=== PATIENT | male | born 1935 | race Caucasian/White ===

== ENCOUNTER → 2016-12-05 | Outpatient (CLI) | payer MEDICARE, OTHER ==
[~2016-12-05] MED LIST: ALLO100T30 PO; ALLO300T PO; ASPI-621 PO; ATOR20TA9 PO; ATOR80TA75 PO; CARV-39 PO; CARV12.543 PO; CARV3.122 PO; CARV6.2512 PO; ENAL10TA PO; ENAL20TA PO; FAMO20TA7 PO; FURO40TA6 PO; MULT-208 PO; TICA90TA PO; [UNRECOGNIZED DRUG - REMARK]
== END | disposition home or self-care (01) ==
LOC: CFH 09:15
PROVIDERS: ATTEND Internal Medicine Cardiovascular Disease
DX: I35.0 Nonrheumatic aortic (valve) stenosis (principal); I34.0 Nonrheumatic mitral (valve) insufficiency; I51.7 Cardiomegaly; I25.10 Atherosclerotic heart disease of native coronary artery without angina pectoris; I25.2 Old myocardial infarction
CPT/HCPCS: 93306

== ENCOUNTER → 2017-02-27 | Outpatient (CLI) | payer MEDICARE, OTHER ==
[~2017-02-27] MED LIST changes: +ATOR-2 PO; -ATOR80TA75 PO; +CHOL200024 PO; +CLOP75TA PO; +MULT-516 PO
[2017-02-27 12:05] LABS: HEMATOCRIT 35.3 % (39.2-51.8); HEMOGLOBIN 11.7 g/dL (13.7-18.0); WHITE BLOOD COUNT 8.5 x10^3/uL (3.4-10)
[2017-02-27 12:51] LABS: ASPARTATE AMINO TRANSFERASE 23 U/L (15-37); BLOOD UREA NITROGEN 24 mg/dL (7-18)
== END | disposition home or self-care (01) ==
LOC: STAR 11:01
PROVIDERS: ATTEND Surgery
DX: Z01.818 Encounter for other preprocedural examination (principal); Z49.01 Encounter for fitting and adjustment of extracorporeal dialysis catheter; R94.31 Abnormal electrocardiogram [ECG] [EKG]; I12.0 Hypertensive chronic kidney disease with stage 5 chronic kidney disease or end stage renal disease; N18.5 Chronic kidney disease, stage 5; E78.5 Hyperlipidemia, unspecified; I25.83 Coronary atherosclerosis due to lipid rich plaque; M10.9 Gout, unspecified; J44.9 Chronic obstructive pulmonary disease, unspecified; Z99.81 Dependence on supplemental oxygen
CPT/HCPCS: 36415; 80053; 85025; 85610; 85730; 93005

== ENCOUNTER 2017-03-04 10:54 | Observation (INO) | payer MEDICARE, OTHER ==
[2017-02-27 11:35] VITALS: BP 149/68
[~2017-03-04] VITALS: Ht 185.4 cm; Wt 73.8 kg
[2017-03-04] MEDS ORDERED: SODIUM CHLORIDE 0.9% 1,000 ML IV SCH (11:19)
[2017-03-04 11:22] VITALS: BP 149/68
[2017-03-04] MEDS ORDERED: BUPIVACAINE/PF 0.5% ONE (12:33)
[2017-03-04] MEDS ORDERED: SODIUM BICARBONATE 4.2%, 5ML ONE (12:34)
[2017-03-04] MEDS ORDERED: EPINEPHRINE 1 MG/ML, 1ML ONE (12:35)
[2017-03-04] MEDS ORDERED: THROMBIN 20,000 UNIT VIAL TP ONE (12:35)
[2017-03-04] MEDS ORDERED: LIDOCAINE-MPF 2% ,5ML ONE (12:35)
[2017-03-04] MEDS ORDERED: HEPARIN 1,000 UNITS/ML, 10ML ONE (12:53)
[2017-03-04] MEDS ORDERED: OXYcodone 5 MG/5 ML ORAL.SOL UDC PO PRN (13:30)
[2017-03-04] MEDS ORDERED: HYDROcodone/APAP 7.5-325MG/15ML UDC PO PRN (13:30)
[2017-03-04] MEDS ORDERED: ACETAMINOPHEN 325 MG TABLET PO PRN (13:30)
[2017-03-04] MEDS ORDERED: ONDANSETRON 2MG/ML, 2ML IVPush PRN (13:30)
[2017-03-04] MEDS ORDERED: FENTANYL PF 100 MCG/2ML IV PRN (13:30)
[2017-03-04] MEDS ORDERED: HYDROmorphone 1 MG/ML, 1ML IV PRN (13:30)
[2017-03-04] MEDS ORDERED: ONDANSETRON 2MG/ML, 2ML ONE (13:48)
[2017-03-04] MEDS ORDERED: PROPOFOL 10 MG/ML, 20ML ONE (13:48)
[2017-03-04] MEDS ORDERED: SUCCINYLCHOLINE 20 MG/ML, 10ML ONE (13:48)
[2017-03-04] MEDS ORDERED: CEFAZOLIN 1,000 MG ONE (13:48)
[2017-03-04] MEDS ORDERED: DEXAMETHASONE 4 MG/ML, 1ML ONE (13:48)
[2017-03-04] MEDS ORDERED: PHENYLEPHRINE 10 MG/ML ONE (13:48)
[2017-03-04] MEDS ORDERED: FENTANYL PF 100 MCG/2ML ONE (13:48)
[2017-03-04] MEDS ORDERED: HYDROcodone/APAP 5/325 TABLET PO PRN (15:00)
[2017-03-04] MEDS ORDERED: SODIUM CHLORIDE FLUSH 10ML SYR IVF SCH (21:00)
== END 2017-03-04 16:50 | disposition home or self-care (01) ==
LOC: OUT 10:54 → ORIP 14:55
PROVIDERS: ADMIT Surgery; ATTEND Surgery
DX: N18.5 Chronic kidney disease, stage 5 (principal)
CPT/HCPCS: 36821; G0378; J0171; J0330; J0690; J1100; J1644; J2370; J2405; J2704; J3010; J3490; J7030

== ENCOUNTER → 2017-04-17 | Outpatient (CLI) | payer MEDICARE, OTHER ==
[~2017-04-17] MED LIST changes: +CARV6.252 PO
[2017-04-17 14:24] LABS: HEMOGLOBIN 12.5 g/dL (13.7-18.0); WHITE BLOOD COUNT 8.5 x10^3/uL (3.4-10)
[2017-04-17 14:33] LABS: BLOOD UREA NITROGEN 38 mg/dL (7-18)
== END | disposition home or self-care (01) ==
LOC: STAR 13:07
PROVIDERS: ATTEND Surgery
DX: Z01.812 Encounter for preprocedural laboratory examination (principal)
CPT/HCPCS: 36415; 80048; 85025

== ENCOUNTER 2017-04-22 12:56 | Day surgery (SDC) | payer MEDICARE, OTHER ==
[~2017-04-22] VITALS: Ht 182.9 cm; Wt 73.0 kg
[2017-04-22 13:41] VITALS: BP 131/80
[2017-04-22 13:52] LABS: BLOOD UREA NITROGEN 45 mg/dL (7-18)
[2017-04-22] MEDS ORDERED: D5%-0.45% NACL 1,000 ML IV SCH (14:00)
[2017-04-22] MEDS ORDERED: LIDOCAINE 2%, 20ML ONE (14:12)
[2017-04-22] MEDS ORDERED: HEPARIN 1,000 UNITS/ML, 10ML ONE (14:27)
[2017-04-22] MEDS ORDERED: FLUMAZENIL 0.1 MG/1 ML, 5ML ONE (14:27)
[2017-04-22] MEDS ORDERED: FENTANYL PF 100 MCG/2ML ONE (14:27)
[2017-04-22] MEDS ORDERED: MIDAZOLAM 1 MG/ML, 5ML ONE (14:27)
[2017-04-22] MEDS ORDERED: NALOXONE 1 MG/ML, 2ML ONE (14:28)
[2017-04-22] MEDS ORDERED: PROTAMINE SULFATE 10 MG/ML, 25ML ONE (14:28)
[2017-04-22] MEDS ORDERED: VISIPAQUE 270 MG/ML, 50ML BOTTLE ONE (15:36)
== END 2017-04-22 17:35 ==
LOC: OUT 12:56
PROVIDERS: ATTEND Surgery
DX: T82.898A Other specified complication of vascular prosthetic devices, implants and grafts, initial encounter (principal); I12.0 Hypertensive chronic kidney disease with stage 5 chronic kidney disease or end stage renal disease; N18.6 End stage renal disease; I25.2 Old myocardial infarction; Y83.8 Other surgical procedures as the cause of abnormal reaction of the patient, or of later complication, without mention of misadventure at the time of the procedure; Y92.89 Other specified places as the place of occurrence of the external cause
CPT/HCPCS: 36415; 36902; 76937; 80048; 99156; 99157; C1725; C1751; C1769; C1894; J2250; J3010; J3490; Q9966; 36901; J1644; J2720; J2310

== ENCOUNTER 2017-06-06 05:49 | Day surgery (SDC) | payer MEDICARE, OTHER ==
[2017-06-05 14:16] LABS: BASOPHILS # (AUTO) 0.02 x10^3/uL (0-0.1); BASOPHILS % (AUTO) 0 % (0-1); EOSINOPHILS # (AUTO) 0.29 x10^3/uL (0-0.4); EOSINOPHILS % (AUTO) 4 % (1-7); LYMPHOCYTES # (AUTO) 1.55 x10^3/uL (1-3.4); LYMPHOCYTES % (AUTO) 20 % (22-44); MD NO; MEAN CORPUSCULAR HEMOGLOBIN 33.5 pg (27.5-34.5); MEAN CORPUSCULAR HGB CONC 33.1 g/dL (33.2-36.2); MEAN PLATELET VOLUME 8.2 fL (7.4-10.4); MONOCYTES # (AUTO) 0.75 x10^3/uL (0.2-0.8); MONOCYTES % (AUTO) 10 % (2-9); NEUTROPHILS # (AUTO) 5.34 x10^3/uL (1.8-6.8); NEUTROPHILS % (AUTO) 67 % (42-75); PLATELET COUNT 213 x10^3/uL (130-400); RED BLOOD COUNT 3.98 x10^6/uL (4.38-5.82); RED CELL DISTRIBUTION WIDTH 16.3 % (9.4-14.8)
[2017-06-05 14:27] LABS: ANION GAP 6 mmol/L (5-15); CALCIUM 9.3 mg/dL (8.5-10.1); CHLORIDE 101 mmol/L (98-107)
[~2017-06-06] VITALS: Ht 182.9 cm; Wt 75.2 kg
[2017-06-06 06:47] VITALS: BP 141/65
[2017-06-06] MEDS ORDERED: SODIUM CHLORIDE 0.9% 1,000 ML IV SCH (06:49)
[2017-06-06] MEDS ORDERED: HEPARIN 1,000 UNITS/ML, 10ML ONE (07:17)
[2017-06-06] MEDS ORDERED: PROTAMINE SULFATE 10 MG/ML, 25ML ONE (07:17)
[2017-06-06] MEDS ORDERED: MIDAZOLAM 1 MG/ML, 5ML ONE (07:17)
[2017-06-06] MEDS ORDERED: FENTANYL PF 100 MCG/2ML ONE (07:17)
[2017-06-06] MEDS ORDERED: NALOXONE 1 MG/ML, 2ML ONE (07:17)
[2017-06-06] MEDS ORDERED: FLUMAZENIL 0.1 MG/1 ML, 5ML ONE (07:17)
[2017-06-06] MEDS ORDERED: LIDOCAINE 2%, 20ML ONE (07:25)
[2017-06-06] MEDS ORDERED: VISIPAQUE 270 MG/ML, 50ML BOTTLE ONE (08:00)
== END 2017-06-06 09:30 | disposition home or self-care (01) ==
LOC: OUT 05:49
PROVIDERS: ATTEND Surgery
DX: T82.858A Stenosis of other vascular prosthetic devices, implants and grafts, initial encounter (principal); J44.9 Chronic obstructive pulmonary disease, unspecified; M10.9 Gout, unspecified; E78.5 Hyperlipidemia, unspecified; I10 Essential (primary) hypertension; Z98.890 Other specified postprocedural states; Y83.8 Other surgical procedures as the cause of abnormal reaction of the patient, or of later complication, without mention of misadventure at the time of the procedure; Y92.89 Other specified places as the place of occurrence of the external cause
CPT/HCPCS: 36415; 36902; 80048; 85025; 99156; 99157; C1725; C1769; C1894; J2250; J3010; J3490; J7030; Q9966; J1644; J2720; J2310

== ENCOUNTER 2017-07-02 17:54 | Inpatient (IN) | payer MEDICARE, OTHER ==
[~2017-07-02] VITALS: Ht 182.9 cm; Wt 73.6 kg
[2017-07-02] MEDS ORDERED: MELA5TAB19 PO (18:39)
[2017-07-02 18:42] LABS: BASOPHILS # (AUTO) 0.03 x10^3/uL (0-0.1); BASOPHILS % (AUTO) 1 % (0-1); EOSINOPHILS # (AUTO) 0.35 x10^3/uL (0-0.4); EOSINOPHILS % (AUTO) 5 % (1-7); LYMPHOCYTES # (AUTO) 1.55 x10^3/uL (1-3.4); LYMPHOCYTES % (AUTO) 22 % (22-44); MD NO; MEAN CORPUSCULAR HEMOGLOBIN 32.7 pg (27.5-34.5); MEAN CORPUSCULAR HGB CONC 32.9 g/dL (33.2-36.2); MEAN CORPUSCULAR VOLUME 99.5 fL (81-97); MEAN PLATELET VOLUME 8.4 fL (7.4-10.4); MONOCYTES # (AUTO) 0.51 x10^3/uL (0.2-0.8); MONOCYTES % (AUTO) 7 % (2-9); NEUTROPHILS # (AUTO) 4.76 x10^3/uL (1.8-6.8); NEUTROPHILS % (AUTO) 66 % (42-75); PLATELET COUNT 159 x10^3/uL (130-400); RED BLOOD COUNT 3.51 x10^6/uL (4.38-5.82); RED CELL DISTRIBUTION WIDTH 14.2 % (9.4-14.8)
[2017-07-02 18:51] LABS: ALANINE AMINOTRANSFERASE 38 U/L (12-78); ALBUMIN 3.7 g/dL (3.4-5.0); ANION GAP 8 mmol/L (5-15); CALCIUM 8.7 mg/dL (8.5-10.1); CHLORIDE 104 mmol/L (98-107); CREATININE 3.24 mg/dL (0.7-1.3)
[2017-07-02 18:53] LABS: ALKALINE PHOSPHATASE 65 U/L (45-117); BILIRUBIN,TOTAL 0.5 mg/dL (0.2-1.0); TOTAL PROTEIN 7.2 g/dL (6.4-8.2)
[2017-07-02] MEDS ORDERED: SODIUM CHLORIDE FLUSH 10ML SYR IVF PRN (21:00)
[2017-07-02] MEDS ORDERED: ONDANSETRON 2MG/ML, 2ML IVPush PRN (22:00)
[2017-07-02 23:29] VITALS: BP 146/70
[2017-07-03 00:39] LABS: CULTURE INDICATED? NO; MICROSCOPIC NOT IND
[2017-07-03 02:53] VITALS: BP 110/65
[2017-07-03 05:16] LABS: ALANINE AMINOTRANSFERASE 33 U/L (12-78); ALBUMIN 3.2 g/dL (3.4-5.0); ANION GAP 7 mmol/L (5-15); CALCIUM 8.3 mg/dL (8.5-10.1); CHLORIDE 108 mmol/L (98-107); CREATININE 3.16 mg/dL (0.7-1.3)
[2017-07-03 05:19] LABS: ALKALINE PHOSPHATASE 57 U/L (45-117); BILIRUBIN,TOTAL 0.5 mg/dL (0.2-1.0); TOTAL PROTEIN 6.2 g/dL (6.4-8.2)
[2017-07-03 05:26] LABS: BASOPHILS # (AUTO) 0.02 x10^3/uL (0-0.1); BASOPHILS % (AUTO) 0 % (0-1); EOSINOPHILS # (AUTO) 0.47 x10^3/uL (0-0.4); EOSINOPHILS % (AUTO) 7 % (1-7); LYMPHOCYTES % (AUTO) 22 % (22-44); MD NO; MEAN CORPUSCULAR HEMOGLOBIN 33.5 pg (27.5-34.5); MEAN CORPUSCULAR HGB CONC 33.9 g/dL (33.2-36.2); MEAN CORPUSCULAR VOLUME 98.7 fL (81-97); MONOCYTES # (AUTO) 0.73 x10^3/uL (0.2-0.8); MONOCYTES % (AUTO) 10 % (2-9); NEUTROPHILS # (AUTO) 4.34 x10^3/uL (1.8-6.8); NEUTROPHILS % (AUTO) 61 % (42-75); PLATELET COUNT 140 x10^3/uL (130-400); RED BLOOD COUNT 3.12 x10^6/uL (4.38-5.82); RED CELL DISTRIBUTION WIDTH 14.4 % (9.4-14.8)
[2017-07-03 06:58] VITALS: BP 123/62
[2017-07-03] MEDS ORDERED: LIDOCAINE 2%, 20ML ONE (08:18)
[2017-07-03] MEDS ORDERED: FENTANYL PF 100 MCG/2ML ONE (08:20)
[2017-07-03] MEDS ORDERED: HEPARIN 1,000 UNITS/ML, 10ML ONE (08:21)
[2017-07-03] MEDS ORDERED: MIDAZOLAM 1 MG/ML, 2ML ONE (08:21)
[2017-07-03] MEDS ORDERED: NITROGLYCERIN 5 MG/ML, 10ML ONE (08:21)
[2017-07-03] MEDS ORDERED: PROTAMINE SULFATE 10 MG/ML, 25ML ONE (08:21)
[2017-07-03] MEDS ORDERED: FLUMAZENIL 0.1 MG/1 ML, 5ML ONE (08:21)
[2017-07-03] MEDS ORDERED: NALOXONE 1 MG/ML, 2ML ONE (08:21)
[2017-07-03] MEDS ORDERED: MULTIVITAMIN 1 TABLET PO SCH (09:00)
[2017-07-03] MEDS ORDERED: CHOLECALCIFEROL 1,000 UNIT TABLET PO SCH (09:00)
[2017-07-03] MEDS ORDERED: CARVEDILOL 6.25 MG TABLET PO SCH (09:00)
[2017-07-03] MEDS ORDERED: ALLOPURINOL 100 MG TABLET PO SCH (09:00)
[2017-07-03] MEDS ORDERED: MIDAZOLAM 1 MG/ML, 5ML ONE (09:38)
[2017-07-03] MEDS ORDERED: LIDOCAINE/PF 1%-EPI 1:200K, 30 ML ONE (09:43)
[2017-07-03] MEDS ORDERED: ALLOPURINOL 300 MG TABLET ONE (12:00)
[2017-07-03] MEDS ORDERED: OXYcodone IR 5MG TABLET PO ONE (14:30)
[2017-07-03] MEDS: ACETAMINOPHEN 325 MG TABLET PO PRN ×2 (14:35→18:03)
[2017-07-03] MEDS ORDERED: ATORVASTATIN 80 MG TABLET PO SCH (21:00)
[2017-07-03] MEDS ORDERED: MELATONIN 5 MG TABLET PO SCH (21:00)
== END 2017-07-03 18:15 | disposition home or self-care (01) | DRG 252 ==
LOC: SUATTDRO 21:04 → ED 21:33 → EDIP 21:55 → 4NOR 23:09
PROVIDERS: ADMIT Hospitalist; ATTEND Hospitalist
PROC: 057Y3ZZ Dilation of Upper Vein, Percutaneous Approach (ICD-10-PCS; principal; 2017-07-03)
PROC: B51N1ZZ Fluoroscopy of Left Upper Extremity Veins using Low Osmolar Contrast (ICD-10-PCS; 2017-07-03)
PROC: 5A1D70Z Performance of Urinary Filtration, Intermittent, Less than 6 Hours Per Day (ICD-10-PCS; 2017-07-03)
PROC: 02H633Z Insertion of Infusion Device into Right Atrium, Percutaneous Approach (ICD-10-PCS; 2017-07-03)
PROC: B244ZZZ Ultrasonography of Right Heart (ICD-10-PCS; 2017-07-03)
PROC: 037C3ZZ Dilation of Left Radial Artery, Percutaneous Approach (ICD-10-PCS; 2017-07-03)
PROC: 0JH63XZ Insertion of Tunneled Vascular Access Device into Chest Subcutaneous Tissue and Fascia, Percutaneous Approach (ICD-10-PCS; 2017-07-03)
PROC: B31J1ZZ Fluoroscopy of Left Upper Extremity Arteries using Low Osmolar Contrast (ICD-10-PCS; 2017-07-03)
DX: T82.590A Other mechanical complication of surgically created arteriovenous fistula, initial encounter (principal); N18.6 End stage renal disease; I13.2 Hypertensive heart and chronic kidney disease with heart failure and with stage 5 chronic kidney disease, or end stage renal disease; E46 Unspecified protein-calorie malnutrition; D63.1 Anemia in chronic kidney disease; J44.9 Chronic obstructive pulmonary disease, unspecified; Y71.2 Prosthetic and other implants, materials and accessory cardiovascular devices associated with adverse incidents; Z68.22 Body mass index [BMI] 22.0-22.9, adult; E78.5 Hyperlipidemia, unspecified; I25.10 Atherosclerotic heart disease of native coronary artery without angina pectoris; I50.9 Heart failure, unspecified; M10.9 Gout, unspecified; N25.0 Renal osteodystrophy; Z82.49 Family history of ischemic heart disease and other diseases of the circulatory system; Z95.5 Presence of coronary angioplasty implant and graft; I25.2 Old myocardial infarction; Z99.2 Dependence on renal dialysis
CPT/HCPCS: 36415; 36558; 36902; 77001; 80053; 81003; 83735; 84100; 84550; 85025; 86704; 86706; 86803; 87340; 93931; 93990; 99156; 99157; 99285; C1725; C1894; J1644; J2250; J2720; J3010; J3490; C1750; C1751; C1769; J2310

== ENCOUNTER 2017-08-19 11:37 | Day surgery (SDC) | payer MEDICARE, OTHER ==
[2017-08-18 10:36] LABS: BASOPHILS # (AUTO) 0.02 x10^3/uL (0-0.1); BASOPHILS % (AUTO) 0 % (0-1); EOSINOPHILS % (AUTO) 8 % (1-7); LYMPHOCYTES # (AUTO) 1.56 x10^3/uL (1-3.4); LYMPHOCYTES % (AUTO) 20 % (22-44); MD NO; MEAN CORPUSCULAR HEMOGLOBIN 33.3 pg (27.5-34.5); MEAN CORPUSCULAR HGB CONC 33.1 g/dL (33.2-36.2); MEAN CORPUSCULAR VOLUME 100.4 fL (81-97); MEAN PLATELET VOLUME 7.8 fL (7.4-10.4); MONOCYTES % (AUTO) 9 % (2-9); NEUTROPHILS # (AUTO) 4.81 x10^3/uL (1.8-6.8); NEUTROPHILS % (AUTO) 63 % (42-75); PLATELET COUNT 202 x10^3/uL (130-400); RED BLOOD COUNT 3.91 x10^6/uL (4.38-5.82)
[2017-08-18 10:47] LABS: ALANINE AMINOTRANSFERASE 55 U/L (12-78); ALBUMIN 3.9 g/dL (3.4-5.0); ANION GAP 8 mmol/L (5-15); CALCIUM 8.9 mg/dL (8.5-10.1); CHLORIDE 102 mmol/L (98-107); CREATININE 3.52 mg/dL (0.7-1.3)
[2017-08-18 10:50] LABS: ALKALINE PHOSPHATASE 72 U/L (45-117); BILIRUBIN,TOTAL 0.5 mg/dL (0.2-1.0); TOTAL PROTEIN 7.9 g/dL (6.4-8.2)
[~2017-08-19] VITALS: Ht 182.9 cm; Wt 72.0 kg
[~2017-08-19 11:37] MED LIST changes: +MELA5TAB19 PO
[2017-08-19] MEDS ORDERED: LACTATED RINGERS 1,000 ML IV SCH (12:10)
[2017-08-19] MEDS ORDERED: THROMBIN 5,000 UNIT VIAL TP ONE ×2 (12:27→15:28)
[2017-08-19] MEDS ORDERED: HEPARIN 1,000 UNITS/ML, 10ML ONE (12:27)
[2017-08-19] MEDS ORDERED: BUPIVACAINE/PF 0.5% ONE (12:27)
[2017-08-19] MEDS ORDERED: EPINEPHRINE 1 MG/ML, 1ML ONE (12:27)
[2017-08-19] MEDS ORDERED: THROMBIN 20,000 UNIT VIAL TP ONE (12:28)
[2017-08-19 12:31] VITALS: BP 132/66
[2017-08-19] MEDS ORDERED: SODIUM CHLORIDE 0.9% 1,000 ML IV SCH (12:56)
[2017-08-19] MEDS ORDERED: MIDAZOLAM 1 MG/ML, 2ML ONE (14:20)
[2017-08-19] MEDS ORDERED: PROPOFOL 50 ML ONE (14:26)
[2017-08-19] MEDS ORDERED: SODIUM BICARBONATE 1 MEQ/ML, 50ML VIAL ONE (14:29)
[2017-08-19] MEDS ORDERED: LIDOCAINE/PF 2%-EPI 1:200K, 10ML ONE (14:29)
[2017-08-19] MEDS ORDERED: PROTAMINE SULFATE 10 MG/ML, 5ML ONE (15:27)
[2017-08-19] MEDS ORDERED: OXYcodone 5 MG/5 ML ORAL.SOL UDC PO PRN (15:30)
[2017-08-19] MEDS ORDERED: MIDAZOLAM 1 MG/ML, 2ML IV PRN (15:30)
[2017-08-19] MEDS ORDERED: ALBUTEROL SULFATE 2.5 MG/3 ML NPPB PRN (15:30)
[2017-08-19] MEDS ORDERED: EPHEDRINE 50 MG/ML, 1ML IVPush PRN (15:30)
[2017-08-19] MEDS ORDERED: PROMETHAZINE 25 MG/ML, 1ML IV PRN (15:30)
[2017-08-19] MEDS ORDERED: ONDANSETRON 2MG/ML, 2ML IVPush PRN (15:30)
[2017-08-19] MEDS ORDERED: ACETAMINOPHEN 325 MG TABLET PO PRN (15:30)
[2017-08-19] MEDS ORDERED: hydrALAzine 20 MG/ML, 1ML IV PRN (15:30)
[2017-08-19] MEDS ORDERED: LABETALOL 5MG/ML, 20ML IV PRN (15:30)
[2017-08-19] MEDS ORDERED: HYDROcodone/APAP 7.5-325MG/15ML UDC PO PRN (15:30)
[2017-08-19] MEDS ORDERED: FENTANYL PF 100 MCG/2ML IV PRN (15:30)
[2017-08-19] MEDS ORDERED: PROMETHAZINE 12.5 MG SUPP PR PRN (15:30)
[2017-08-19] MEDS ORDERED: morphine SULFATE 10 MG/ML, 1ML IV PRN (15:30)
[2017-08-19] MEDS ORDERED: METOPROLOL 1 MG/ML, 5ML IV PRN (15:30)
[2017-08-19] MEDS ORDERED: HYDROcodone/APAP 5/325 TABLET PO PRN (16:30)
[2017-08-19] MEDS ORDERED: SODIUM CHLORIDE FLUSH 10ML SYR IVF SCH (21:00)
== END 2017-08-19 18:00 ==
LOC: OUT 11:37
PROVIDERS: ATTEND Surgery
DX: I12.0 Hypertensive chronic kidney disease with stage 5 chronic kidney disease or end stage renal disease (principal); N18.5 Chronic kidney disease, stage 5; E78.5 Hyperlipidemia, unspecified; I10 Essential (primary) hypertension; Z98.890 Other specified postprocedural states; I25.10 Atherosclerotic heart disease of native coronary artery without angina pectoris
CPT/HCPCS: 36415; 36821; 80053; 85025; 93005; J0171; J1644; J2250; J2704; J2720; J3490; J7030

== ENCOUNTER → 2017-11-13 | Outpatient (CLI) | payer MEDICARE, OTHER | END | disposition home or self-care (01) | LOC: CVU 10:59 | PROVIDERS: ATTEND Internal Medicine Cardiovascular Disease | DX: I08.0 Rheumatic disorders of both mitral and aortic valves (principal); I42.9 Cardiomyopathy, unspecified; I10 Essential (primary) hypertension; I25.2 Old myocardial infarction; Z95.5 Presence of coronary angioplasty implant and graft | CPT/HCPCS: 93306 ==

== ENCOUNTER 2018-02-24 09:19 | Day surgery (SDC) | payer MEDICARE ==
[~2018-02-24] VITALS: Ht 182.9 cm; Wt 73.8 kg
[2018-02-24 09:59] VITALS: BP 112/61
[2018-02-24] MEDS ORDERED: D5%-0.45% NACL 1,000 ML IV SCH (10:30)
[2018-02-24 10:44] LABS: BASOPHILS # (AUTO) 0.01 x10^3/uL (0-0.1); BASOPHILS % (AUTO) 0 % (0-1); EOSINOPHILS # (AUTO) 0.31 x10^3/uL (0-0.4); EOSINOPHILS % (AUTO) 5 % (1-7); LYMPHOCYTES # (AUTO) 0.95 x10^3/uL (1-3.4); LYMPHOCYTES % (AUTO) 15 % (22-44); MD NO; MEAN CORPUSCULAR HGB CONC 33.4 g/dL (33.2-36.2); MEAN CORPUSCULAR VOLUME 98.9 fL (81-97); MEAN PLATELET VOLUME 7.7 fL (7.4-10.4); MONOCYTES # (AUTO) 0.68 x10^3/uL (0.2-0.8); MONOCYTES % (AUTO) 11 % (2-9); NEUTROPHILS # (AUTO) 4.38 x10^3/uL (1.8-6.8); NEUTROPHILS % (AUTO) 69 % (42-75); PLATELET COUNT 201 x10^3/uL (130-400)
[2018-02-24 10:51] LABS: ANION GAP 7 mmol/L (5-15); CALCIUM 8.8 mg/dL (8.5-10.1); CHLORIDE 103 mmol/L (98-107); CREATININE 2.63 mg/dL (0.7-1.3)
[2018-02-24] MEDS ORDERED: LIDOCAINE-MPF 2%, 2ML ONE (11:32)
[2018-02-24] MEDS ORDERED: FENTANYL PF 100 MCG/2ML ONE (12:38)
[2018-02-24] MEDS ORDERED: HEPARIN 1,000 UNITS/ML, 10ML ONE (12:39)
[2018-02-24] MEDS ORDERED: NALOXONE 1 MG/ML, 2ML ONE (12:39)
[2018-02-24] MEDS ORDERED: PROTAMINE SULFATE 10 MG/ML, 25ML ONE (12:39)
[2018-02-24] MEDS ORDERED: NITROGLYCERIN 5 MG/ML, 10ML ONE (12:39)
[2018-02-24] MEDS ORDERED: FLUMAZENIL 0.1 MG/1 ML, 5ML ONE (12:39)
[2018-02-24] MEDS ORDERED: MIDAZOLAM 1 MG/ML, 5ML ONE (12:39)
== END 2018-02-24 16:45 | disposition home or self-care (01) ==
LOC: OUT 09:19
DX: T82.590A Other mechanical complication of surgically created arteriovenous fistula, initial encounter (principal); Y83.8 Other surgical procedures as the cause of abnormal reaction of the patient, or of later complication, without mention of misadventure at the time of the procedure; Y92.89 Other specified places as the place of occurrence of the external cause; Z98.890 Other specified postprocedural states; I12.0 Hypertensive chronic kidney disease with stage 5 chronic kidney disease or end stage renal disease; N18.6 End stage renal disease; I25.10 Atherosclerotic heart disease of native coronary artery without angina pectoris; Z99.2 Dependence on renal dialysis; J44.9 Chronic obstructive pulmonary disease, unspecified; M10.9 Gout, unspecified; Z99.81 Dependence on supplemental oxygen
CPT/HCPCS: 36415; 36902; 36907; 76937; 80048; 85025; 99156; 99157; C1725; C1769; C1894; J2250; J3010; J3490; J1644; J2720; J2310

== ENCOUNTER 2019-06-03 07:47 | Outpatient (CLI) | payer MEDICARE ==
[~2019-06-03 07:47] MED LIST changes: -ASPI-621 PO; +ASPI81TA45 PO; +ATOR20TA37 PO; -ATOR20TA9 PO; +MELA5TAB14 PO; -MELA5TAB19 PO
== END 2019-06-03 23:59 | disposition home or self-care (01) ==
LOC: CVU 07:47
PROVIDERS: ATTEND Internal Medicine Cardiovascular Disease
DX: I08.8 Other rheumatic multiple valve diseases (principal); I25.2 Old myocardial infarction; N18.9 Chronic kidney disease, unspecified
CPT/HCPCS: 93306

== ENCOUNTER 2019-06-28 19:47 | Observation (INO) | payer MEDICARE ==
[~2019-06-28] VITALS: Ht 180.3 cm; Wt 74.8 kg
--- NOTE | 2019-06-28 20:51 | NUR ---
PT LYING QUIETLY ON BED, DAUGHTER IN ROOM. PT STATES HE WAS IN DIALYSIS TODAY AND PART OF THE CLAMP ON DIALYSIS PORT BROKE OFF. TUBING INTACT; CLAMPED W/ DISPOSABLE CLAMP BY DIALYSIS STAFF. PT SENT TO ED FOR CLAMP REPLACEMENT.
[2019-06-28 20:56] LABS: BASOPHILS # (AUTO) 0.04 x10^3/uL (0-0.1); BASOPHILS % (AUTO) 1 % (0-1); EOSINOPHILS # (AUTO) 0.32 x10^3/uL (0-0.4); EOSINOPHILS % (AUTO) 4 % (1-7); LYMPHOCYTES # (AUTO) 1.04 x10^3/uL (1-3.4); LYMPHOCYTES % (AUTO) 14 % (22-44); MD NO; MEAN CORPUSCULAR HGB CONC 33.3 g/dL (33.2-36.2); MEAN CORPUSCULAR VOLUME 101.9 fL (81-97); MEAN PLATELET VOLUME 8.4 fL (7.4-10.4); MONOCYTES # (AUTO) 0.83 x10^3/uL (0.2-0.8); MONOCYTES % (AUTO) 11 % (2-9); NEUTROPHILS # (AUTO) 5.07 x10^3/uL (1.8-6.8); NEUTROPHILS % (AUTO) 69 % (42-75); PLATELET COUNT 178 x10^3/uL (130-400); RED BLOOD COUNT 3.07 x10^6/uL (4.38-5.82); RED CELL DISTRIBUTION WIDTH 14.4 % (9.4-14.8)
[2019-06-28] MEDS ORDERED: FOLI0.8T22 PO (20:57)
[2019-06-28 21:08] LABS: ALANINE AMINOTRANSFERASE 47 U/L (12-78); ALBUMIN 3.5 g/dL (3.4-5.0); ANION GAP 5 mmol/L (5-15); CALCIUM 8.8 mg/dL (8.5-10.1); CHLORIDE 100 mmol/L (98-107)
[2019-06-28 21:11] LABS: ALKALINE PHOSPHATASE 59 U/L (45-117); BILIRUBIN,TOTAL 0.6 mg/dL (0.2-1.0); TOTAL PROTEIN 7.2 g/dL (6.4-8.2)
[2019-06-28] MEDS ORDERED: HOME OXYGEN NS (22:18)
--- NOTE | 2019-06-28 23:00 | NUR ---
PT REPORT TO LARRY WASHINGTON FOR ROOM 378. PT'S DAUGHTER TOOK PT'S OXYGEN TANK HOME WITH HER.
[2019-06-29] MEDS ORDERED: ACETAMINOPHEN 325 MG TABLET PO PRN
[2019-06-29] MEDS ORDERED: DOCUSATE 100 MG CAPSULE PO PRN
[2019-06-29] MEDS ORDERED: hydrALAzine 20 MG/ML, 1ML IVPush PRN
[2019-06-29] MEDS ORDERED: TRAZODONE 50MG TABLET PO PRN
[2019-06-29] MEDS ORDERED: ONDANSETRON ODT 4 MG PO PRN
[2019-06-29 00:02] VITALS: BP 129/68
[2019-06-29 00:06] VITALS: BP 129/68
[2019-06-29 05:58] LABS: BASOPHILS # (AUTO) 0.03 x10^3/uL (0-0.1); BASOPHILS % (AUTO) 0 % (0-1); EOSINOPHILS # (AUTO) 0.39 x10^3/uL (0-0.4); EOSINOPHILS % (AUTO) 6 % (1-7); LYMPHOCYTES % (AUTO) 21 % (22-44); MD NO; MEAN CORPUSCULAR HGB CONC 33.7 g/dL (33.2-36.2); MEAN CORPUSCULAR VOLUME 100.8 fL (81-97); MONOCYTES # (AUTO) 0.75 x10^3/uL (0.2-0.8); MONOCYTES % (AUTO) 11 % (2-9); NEUTROPHILS # (AUTO) 4.06 x10^3/uL (1.8-6.8); NEUTROPHILS % (AUTO) 61 % (42-75); PLATELET COUNT 162 x10^3/uL (130-400); RED BLOOD COUNT 2.89 x10^6/uL (4.38-5.82); RED CELL DISTRIBUTION WIDTH 14.1 % (9.4-14.8)
[2019-06-29 06:13] LABS: ANION GAP 5 mmol/L (5-15); CALCIUM 8.7 mg/dL (8.5-10.1); CHLORIDE 103 mmol/L (98-107); CREATININE 1.99 mg/dL (0.7-1.3)
[2019-06-29] MEDS: ASPIRIN 81 MG TABLET EC PO SCH ×2 (07:44→11:49)
[2019-06-29 07:56] VITALS: BP 111/60
[2019-06-29] MEDS ORDERED: LIDOCAINE 1%, 10ML ONE (08:44)
[2019-06-29] MEDS ORDERED: MIDAZOLAM 1 MG/ML, 5ML ONE ×2 (08:51)
[2019-06-29] MEDS ORDERED: FENTANYL PF 100 MCG/2ML ONE (08:51)
[2019-06-29] MEDS ORDERED: FLUMAZENIL 0.1 MG/1 ML, 5ML ONE (08:51)
[2019-06-29] MEDS ORDERED: NALOXONE 1 MG/ML, 2ML ONE (08:51)
[2019-06-29] MEDS ORDERED: MULTIVITAMIN 1 TABLET PO SCH (09:00)
[2019-06-29] MEDS ORDERED: CARVEDILOL 6.25 MG TABLET PO SCH (09:00)
[2019-06-29] MEDS ORDERED: CHOLECALCIFEROL 1,000 UNIT TABLET PO SCH (09:00)
[2019-06-29] MEDS ORDERED: ALLOPURINOL 100 MG TABLET PO SCH (09:00)
[2019-06-29] MEDS ORDERED: CEFAZOLIN PMX 1GM/50ML 50 ML ONE (09:27)
[2019-06-29 11:46] VITALS: BP 113/65
[2019-06-29] MEDS ORDERED: ATORVASTATIN 80 MG TABLET PO SCH (21:00)
== END 2019-06-29 14:45 | disposition home or self-care (01) ==
LOC: ED 20:52 → INTOOBSV 21:56 → EDIP 21:56 → 3N 23:48 → DCLOUNGE 06-29 14:27
PROVIDERS: ADMIT Family Medicine; ATTEND Hospitalist
DX: T82.41XA Breakdown (mechanical) of vascular dialysis catheter, initial encounter (principal); N18.6 End stage renal disease; I13.2 Hypertensive heart and chronic kidney disease with heart failure and with stage 5 chronic kidney disease, or end stage renal disease; I25.10 Atherosclerotic heart disease of native coronary artery without angina pectoris; I50.9 Heart failure, unspecified; I25.2 Old myocardial infarction; E78.5 Hyperlipidemia, unspecified; M10.9 Gout, unspecified; D63.1 Anemia in chronic kidney disease; J96.10 Chronic respiratory failure, unspecified whether with hypoxia or hypercapnia; Y71.2 Prosthetic and other implants, materials and accessory cardiovascular devices associated with adverse incidents; Z99.2 Dependence on renal dialysis; Z79.82 Long term (current) use of aspirin
CPT/HCPCS: 36415; 75984; 80048; 80053; 84100; 85025; 99156; 99157; 99284; C1750; C1769; G0378; J0690; J1642; J2250; J3010; J3490; J2310

== ENCOUNTER → 2020-09-20 | Outpatient (CLI) | payer MEDICARE ==
[~2020-09-20] MED LIST changes: -ENAL10TA PO; +ENAL10TA9 PO; -ENAL20TA PO; +ENAL20TA9 PO; +FOLI0.8T22 PO; +HOME OXYGEN NS
== END | disposition home or self-care (01) ==
LOC: CFH 14:40
PROVIDERS: ATTEND Internal Medicine Cardiovascular Disease
DX: I08.8 Other rheumatic multiple valve diseases (principal); I42.9 Cardiomyopathy, unspecified; N18.9 Chronic kidney disease, unspecified
CPT/HCPCS: 93306

== ENCOUNTER 2020-11-30 02:25 | Inpatient (IN) | payer MEDICARE ==
[~2020-11-30] VITALS: Ht 182.9 cm; Wt 77.2 kg
[2020-11-30] MEDS: NOREPINEPHRINE 8 MG in SODIUM CHLORIDE 0.9% 242 ML IV PRN (02:30)
--- NOTE | 2020-11-30 02:30 | NUR ---
Patient SUKUMAR from [facility], intubated and receiving Amiodarone infusion. Patient was picked up from home earlier; found down by EMS. Last seen normal approx 24 hrs ago. For EMS, patient went into [facility] with pulses x2. He was cardioverted both times with success. At [facility], patient went into [facility] again and was cardioverted but afterward, mentation decreased and he had minimal response. Patient was intubated at [facility]. He was given 300mg Ami push and placed on Ami infusion. Patient was hypotensive and a Levophed infusion was initiated. Also had Versed and Fentanyl infusion for sedation, which [facility] d/c. Neg head CT at [facility]. Patient is also a dialysis patient and last received dialysis on Friday. Per [facility], they d/c Versed and Fentanyl infusions and en route admin 1mg Versed and 100mcg Fentanyl. Patient remained sedated. No other incidents to report en route. 7.[address]; 23cm at the teeth. Vent settings: 450mL TV 5 PEEP 18 RR 50% FiO2 OG tube in place. Hawkins catheter in place; approx 150mL urine noted in bag. Tunneled dialysis catheter in place in the left IJ. Continued Amiodarone and Levophed infusions. Initiated Propofol infusion for sedation.
[2020-11-30 02:50] LABS: BASOPHILS % (AUTO) 0 % (0-1); EOSINOPHILS % (AUTO) 0 % (1-7); LYMPHOCYTES % (AUTO) 4 % (22-44); MEAN CORPUSCULAR HGB CONC 32.4 g/dL (33.2-36.2); MONOCYTES % (AUTO) 11 % (2-9); NEUTROPHILS % (AUTO) 84 % (42-75); PLATELET COUNT 146 x10^3/uL (130-400); RED BLOOD COUNT 3.43 x10^6/uL (4.38-5.82); RED CELL DISTRIBUTION WIDTH 15.4 % (9.4-14.8)
[2020-11-30] MEDS ORDERED: PROPOFOL 100 ML IV PRN (03:00)
[2020-11-30] MEDS: PROPOFOL 100 ML IV PRN ×2 (03:00→09:16)
[2020-11-30] MEDS ORDERED: NOREPINEPHRINE 8 MG in SODIUM CHLORIDE 0.9% 242 ML IV PRN (03:00)
[2020-11-30] MEDS ORDERED: AMIODARONE 450 MG in DEXTROSE 5% 241 ML IV PRN (03:00)
[2020-11-30] MEDS ORDERED: FILTER 0.22 MICRON IV ONE (03:00)
[2020-11-30 03:02] LABS: ALBUMIN 3.3 g/dL (3.4-5.0); ANION GAP 15 mmol/L (5-15); CALCIUM 9.7 mg/dL (8.5-10.1); CHLORIDE 100 mmol/L (98-107); CREATININE 5.19 mg/dL (0.7-1.3)
[2020-11-30] MEDS ORDERED: PROPOFOL 100 ML IV ONE (03:02)
[2020-11-30] MEDS ORDERED: DEXTROSE 50%, 50ML SYRINGE IVPush PRN (03:30)
[2020-11-30] MEDS ORDERED: SENNA 176 MG/5 ML ORAL SOL NG PRN (03:30)
[2020-11-30] MEDS ORDERED: VANCOMYCIN PER PHARMACY MC PRN (03:30)
[2020-11-30] MEDS ORDERED: DEXTROSE 4 GM TAB.CHEW PO PRN (03:30)
[2020-11-30] MEDS ORDERED: GLUCAGON 1 MG IM PRN (03:30)
[2020-11-30] MEDS ORDERED: ONDANSETRON 2MG/ML, 2ML IV PRN (03:30)
[2020-11-30] MEDS ORDERED: FENTANYL PF 100 MCG/2ML IVPush PRN (03:30)
[2020-11-30] MEDS ORDERED: BISACODYL 10 MG SUPP PR PRN (03:30)
[2020-11-30] MEDS ORDERED: SENNA/DOCUSATE TABLET NG PRN (03:30)
[2020-11-30] MEDS ORDERED: LIDOCAINE-MPF 1%, 2ML ENDO PRN (03:30)
[2020-11-30] MEDS ORDERED: PHARMACY MAY ADJ FOR RENAL FX MC SCH (03:30)
[2020-11-30] MEDS ORDERED: LACTULOSE 20 GM/30 ML UDC NG PRN (03:30)
--- NOTE | 2020-11-30 04:10 | NUR ---
Ann daughter [phone]
--- NOTE | 2020-11-30 04:12 | NUR ---
Report given to LARRY Croft. Patient to be transferred to room 541.
--- NOTE | 2020-11-30 04:14 | NUR ---
Per daughter, patient's tank processor is Dr. Coates.
[2020-11-30] MEDS ORDERED: PHARMACOKINETIC MONITORING MC PRN (04:30)
[2020-11-30] MEDS ORDERED: CEFEPIME 1 GM in DEXTROSE 5% 50 ML IV SCH (04:30)
[2020-11-30] MEDS: HEPARIN 5,000 UNITS/ML, 1ML SQ SCH ×3 (05:43→21:28)
[2020-11-30 06:52] LABS: TROPONIN I 0.537 ng/mL (0.000-0.045)
[2020-11-30] MEDS: SODIUM CHLORIDE FLUSH 10ML SYR IVF SCH ×2 (09:16→21:28)
[2020-11-30] MEDS: PANTOPRAZOLE 40 MG IV IVPush SCH (10:48)
[2020-11-30 13:03] LABS: TROPONIN I 0.688 ng/mL (0.000-0.045)
[2020-11-30] MEDS: CEFEPIME 1 GM in DEXTROSE 5% 50 ML IV SCH (21:28)
[2020-12-01] MEDS: PROPOFOL 100 ML IV PRN ×2 (00:48→16:25)
[2020-12-01 04:43] LABS: BASOPHILS % (AUTO) 1 % (0-1); EOSINOPHILS % (AUTO) 1 % (1-7); LYMPHOCYTES % (AUTO) 6 % (22-44); MEAN CORPUSCULAR HEMOGLOBIN 34.5 pg (27.5-34.5); MEAN CORPUSCULAR HGB CONC 33.8 g/dL (33.2-36.2); MEAN PLATELET VOLUME 9.5 fL (7.4-10.4); MONOCYTES % (AUTO) 10 % (2-9); NEUTROPHILS % (AUTO) 83 % (42-75); PLATELET COUNT 103 x10^3/uL (130-400); RED BLOOD COUNT 3.03 x10^6/uL (4.38-5.82); RED CELL DISTRIBUTION WIDTH 16.1 % (9.4-14.8)
[2020-12-01 04:56] LABS: ANION GAP 11 mmol/L (5-15); CALCIUM 8.3 mg/dL (8.5-10.1); CHLORIDE 102 mmol/L (98-107); CREATININE 4.26 mg/dL (0.7-1.3); IRON LEVEL 39 mcg/dL (65-175)
[2020-12-01 05:13] LABS: % IRON SATURATION 24 % (20-55); TOTAL IRON BINDING CAPACITY 164 mcg/dL (250-450)
[2020-12-01] MEDS: PANTOPRAZOLE 40 MG IV IVPush SCH (05:46)
[2020-12-01] MEDS: ASPIRIN 81 MG TABLET CHEW PO SCH (05:46)
[2020-12-01] MEDS: HEPARIN 5,000 UNITS/ML, 1ML SQ SCH ×3 (05:47→20:09)
[2020-12-01] MEDS: CLOPIDOGREL 75 MG TABLET PO SCH (08:37)
[2020-12-01] MEDS: SODIUM CHLORIDE FLUSH 10ML SYR IVF SCH ×2 (08:37→20:09)
[2020-12-01] MEDS: CEFEPIME 1 GM in DEXTROSE 5% 50 ML IV SCH (20:09)
[2020-12-02] MEDS: NOREPINEPHRINE 8 MG in SODIUM CHLORIDE 0.9% 242 ML IV PRN (01:03)
[2020-12-02] MEDS: PROPOFOL 100 ML IV PRN (03:04)
[2020-12-02 04:24] LABS: MEAN CORPUSCULAR HEMOGLOBIN 34.5 pg (27.5-34.5); MEAN CORPUSCULAR HGB CONC 33.4 g/dL (33.2-36.2); MEAN PLATELET VOLUME 9.7 fL (7.4-10.4); PLATELET COUNT 78 x10^3/uL (130-400); RED BLOOD COUNT 3.07 x10^6/uL (4.38-5.82); RED CELL DISTRIBUTION WIDTH 15.7 % (9.4-14.8)
[2020-12-02 04:30] LABS: ANION GAP 11 mmol/L (5-15); CALCIUM 8.2 mg/dL (8.5-10.1); CHLORIDE 101 mmol/L (98-107); CREATININE 3.62 mg/dL (0.7-1.3)
[2020-12-02] MEDS: ASPIRIN 81 MG TABLET CHEW PO SCH (05:43)
[2020-12-02] MEDS: PANTOPRAZOLE 40 MG IV IVPush SCH (05:43)
[2020-12-02] MEDS: HEPARIN 5,000 UNITS/ML, 1ML SQ SCH ×3 (05:43→11:07)
[2020-12-02] MEDS: CLOPIDOGREL 75 MG TABLET PO SCH (08:23)
[2020-12-02] MEDS: SODIUM CHLORIDE FLUSH 10ML SYR IVF SCH ×2 (08:23→19:45)
[2020-12-02] MEDS ORDERED: ALBUMIN HUMAN 25% 100 ML ONE (13:42)
[2020-12-02] MEDS ORDERED: ALBUMIN HUMAN 25% 100 ML IV ONE ×2 (14:00)
[2020-12-02] MEDS: CEFEPIME 1 GM in DEXTROSE 5% 50 ML IV SCH (19:45)
[2020-12-03 04:48] LABS: MEAN CORPUSCULAR HEMOGLOBIN 34.9 pg (27.5-34.5); MEAN CORPUSCULAR HGB CONC 34.1 g/dL (33.2-36.2); MEAN PLATELET VOLUME 9.6 fL (7.4-10.4); PLATELET COUNT 62 x10^3/uL (130-400); RED BLOOD COUNT 2.79 x10^6/uL (4.38-5.82); RED CELL DISTRIBUTION WIDTH 16.2 % (9.4-14.8)
[2020-12-03 04:49] LABS: ANION GAP 10 mmol/L (5-15); CALCIUM 8.1 mg/dL (8.5-10.1); CHLORIDE 102 mmol/L (98-107); CREATININE 4.34 mg/dL (0.7-1.3); TRIGLYCERIDES 106 mg/dL (50-200)
[2020-12-03 05:28] LABS: BASOPHILS % (AUTO) 0 % (0-1); EOSINOPHILS % (AUTO) 2 % (1-7); LYMPHOCYTES % (AUTO) 6 % (22-44); MONOCYTES % (AUTO) 13 % (2-9); NEUTROPHILS % (AUTO) 79 % (42-75)
[2020-12-03] MEDS: ASPIRIN 81 MG TABLET CHEW PO SCH (05:57)
[2020-12-03] MEDS: PANTOPRAZOLE 40 MG IV IVPush SCH (05:58)
[2020-12-03] MEDS: NOREPINEPHRINE 8 MG in SODIUM CHLORIDE 0.9% 242 ML IV PRN (06:07)
[2020-12-03] MEDS: CLOPIDOGREL 75 MG TABLET PO SCH (10:54)
[2020-12-03] MEDS: SODIUM CHLORIDE FLUSH 10ML SYR IVF SCH ×2 (10:54→21:43)
[2020-12-03] MEDS ORDERED: HEPARIN 5,000 UNITS/ML, 1ML SQ SCH (13:30)
[2020-12-03] MEDS: CEFEPIME 1 GM in DEXTROSE 5% 50 ML IV SCH (21:42)
[2020-12-04] MEDS: PANTOPRAZOLE 40 MG IV IVPush SCH (05:47)
[2020-12-04] MEDS: ASPIRIN 81 MG TABLET CHEW PO SCH (05:47)
[2020-12-04] MEDS: SODIUM CHLORIDE FLUSH 10ML SYR IVF SCH ×2 (08:33→20:25)
[2020-12-04] MEDS: CLOPIDOGREL 75 MG TABLET PO SCH (08:34)
[2020-12-04] MEDS: MIDODRINE 5 MG TABLET PO SCH ×4 (08:34→20:30)
[2020-12-04 17:58] VITALS: BP 103/65
[2020-12-04] MEDS: CEFEPIME 1 GM in DEXTROSE 5% 50 ML IV SCH (20:24)
[2020-12-05 02:30] VITALS: BP 110/68
[2020-12-05] MEDS: PANTOPRAZOLE 40 MG IV IVPush SCH (05:46)
[2020-12-05 05:47] LABS: BASOPHILS % (AUTO) 1 % (0-1); EOSINOPHILS % (AUTO) 5 % (1-7); LYMPHOCYTES % (AUTO) 8 % (22-44); MEAN CORPUSCULAR HEMOGLOBIN 34.4 pg (27.5-34.5); MEAN CORPUSCULAR HGB CONC 33.5 g/dL (33.2-36.2); MEAN PLATELET VOLUME 10.9 fL (7.4-10.4); MONOCYTES % (AUTO) 16 % (2-9); NEUTROPHILS % (AUTO) 71 % (42-75); PLATELET COUNT 53 x10^3/uL (130-400); RED CELL DISTRIBUTION WIDTH 15.6 % (9.4-14.8)
[2020-12-05 05:50] LABS: CHLORIDE 102 mmol/L (98-107)
[2020-12-05 05:55] LABS: ANION GAP 8 mmol/L (5-15); CALCIUM 8.7 mg/dL (8.5-10.1); CREATININE 2.83 mg/dL (0.7-1.3)
[2020-12-05 06:28] VITALS: BP 101/64
[2020-12-05] MEDS: ASPIRIN 81 MG TABLET CHEW PO SCH (10:25)
[2020-12-05] MEDS: CLOPIDOGREL 75 MG TABLET PO SCH (10:25)
[2020-12-05] MEDS: SODIUM CHLORIDE FLUSH 10ML SYR IVF SCH ×2 (10:34→21:39)
[2020-12-05] MEDS: MIDODRINE 5 MG TABLET PO SCH ×3 (10:38→21:39)
[2020-12-05 12:20] VITALS: BP 105/63
[2020-12-05 19:05] VITALS: BP 108/67
[2020-12-05] MEDS: CEFEPIME 1 GM in DEXTROSE 5% 50 ML IV SCH (21:38)
[2020-12-06 01:37] VITALS: BP 111/66
[2020-12-06 05:35] LABS: BASOPHILS % (AUTO) 1 % (0-1); EOSINOPHILS % (AUTO) 5 % (1-7); LYMPHOCYTES % (AUTO) 8 % (22-44); MEAN CORPUSCULAR HEMOGLOBIN 34.6 pg (27.5-34.5); MEAN CORPUSCULAR HGB CONC 33.7 g/dL (33.2-36.2); MEAN PLATELET VOLUME 10.8 fL (7.4-10.4); MONOCYTES % (AUTO) 14 % (2-9); NEUTROPHILS % (AUTO) 73 % (42-75); PLATELET COUNT 71 x10^3/uL (130-400); RED BLOOD COUNT 2.97 x10^6/uL (4.38-5.82); RED CELL DISTRIBUTION WIDTH 15.7 % (9.4-14.8)
[2020-12-06 05:44] LABS: ALANINE AMINOTRANSFERASE 144 U/L (12-78); ANION GAP 8 mmol/L (5-15); CALCIUM 8.7 mg/dL (8.5-10.1); CHLORIDE 104 mmol/L (98-107)
[2020-12-06 05:46] LABS: ALKALINE PHOSPHATASE 71 U/L (45-117); BILIRUBIN,TOTAL 0.8 mg/dL (0.2-1.0); CREATININE 3.78 mg/dL (0.7-1.3); TOTAL PROTEIN 6.5 g/dL (6.4-8.2)
[2020-12-06 07:15] VITALS: BP 108/70
[2020-12-06] MEDS: PANTOPRAZOLE 40MG TABLET PO SCH (07:40)
[2020-12-06] MEDS: SODIUM CHLORIDE FLUSH 10ML SYR IVF SCH ×2 (08:09→21:29)
[2020-12-06 08:14] VITALS: BP 114/72
[2020-12-06] MEDS: MIDODRINE 5 MG TABLET PO SCH ×3 (12:15→21:29)
[2020-12-06 14:39] VITALS: BP 114/67
[2020-12-06 19:17] VITALS: BP_SYST 114; BP_SYST 116; BP_DIAS 64
[2020-12-06] MEDS: CEFEPIME 1 GM in DEXTROSE 5% 50 ML IV SCH (21:29)
[2020-12-07 01:16] VITALS: BP 110/70
[2020-12-07] MEDS: PANTOPRAZOLE 40MG TABLET PO SCH (05:53)
[2020-12-07 07:50] VITALS: BP 131/82
[2020-12-07] MEDS: SODIUM CHLORIDE FLUSH 10ML SYR IVF SCH (09:00)
[2020-12-07] MEDS: MIDODRINE 5 MG TABLET PO SCH ×2 (10:11→16:11)
[2020-12-07] MEDS ORDERED: SENNA 176 MG/5 ML ORAL SOL NG PRN (12:30)
[2020-12-07] MEDS ORDERED: BISACODYL 10 MG SUPP PR PRN (12:30)
[2020-12-07] MEDS ORDERED: SENNA/DOCUSATE TABLET NG PRN (12:30)
[2020-12-07 15:08] VITALS: BP 124/73
[2020-12-07] MEDS ORDERED: LACT20SO13 NG (15:14)
[2020-12-07] MEDS ORDERED: MIDO5TAB9 PO (15:14)
[2020-12-07] MEDS ORDERED: PANT40TA6 PO (15:14)
[2020-12-08] MEDS ORDERED: ASPIRIN 81 MG TABLET EC PO SCH (09:00)
[2020-12-08] MEDS ORDERED: ALLOPURINOL 100 MG TABLET PO SCH (09:00)
[2020-12-08] MEDS ORDERED: CLOPIDOGREL 75 MG TABLET PO SCH (09:00)
== END 2020-12-07 16:52 | DRG 871 ==
LOC: ED 02:55 → EDIP 03:04 → CCU 04:19 → 5SO 12-04 17:40
PROVIDERS: ADMIT Internal Medicine; ATTEND Hospitalist
PROC: 5A2204Z Restoration of Cardiac Rhythm, Single (ICD-10-PCS; principal; 2020-11-30)
PROC: 5A1945Z Respiratory Ventilation, 24-96 Consecutive Hours (ICD-10-PCS; 2020-11-30)
PROC: 0BH17EZ Insertion of Endotracheal Airway into Trachea, Via Natural or Artificial Opening (ICD-10-PCS; 2020-11-30)
PROC: 5A1D70Z Performance of Urinary Filtration, Intermittent, Less than 6 Hours Per Day (ICD-10-PCS; 2020-11-30)
PROC: 5A1D70Z Performance of Urinary Filtration, Intermittent, Less than 6 Hours Per Day (ICD-10-PCS; 2020-12-01)
PROC: 5A1D70Z Performance of Urinary Filtration, Intermittent, Less than 6 Hours Per Day (ICD-10-PCS; 2020-12-04)
PROC: 5A1D70Z Performance of Urinary Filtration, Intermittent, Less than 6 Hours Per Day (ICD-10-PCS; 2020-12-06)
DX: A41.9 Sepsis, unspecified organism (principal); J96.01 Acute respiratory failure with hypoxia; N18.6 End stage renal disease; R65.21 Severe sepsis with septic shock; G93.41 Metabolic encephalopathy; I21.4 Non-ST elevation (NSTEMI) myocardial infarction; I46.2 Cardiac arrest due to underlying cardiac condition; I47.2 Ventricular tachycardia; I13.2 Hypertensive heart and chronic kidney disease with heart failure and with stage 5 chronic kidney disease, or end stage renal disease; I50.40 Unspecified combined systolic (congestive) and diastolic (congestive) heart failure; N25.81 Secondary hyperparathyroidism of renal origin; N39.0 Urinary tract infection, site not specified; Z99.11 Dependence on respirator [ventilator] status; Z66 Do not resuscitate; D53.9 Nutritional anemia, unspecified; D63.1 Anemia in chronic kidney disease; E16.2 Hypoglycemia, unspecified; E55.9 Vitamin D deficiency, unspecified; I25.10 Atherosclerotic heart disease of native coronary artery without angina pectoris; I25.5 Ischemic cardiomyopathy; I35.0 Nonrheumatic aortic (valve) stenosis; I49.3 Ventricular premature depolarization; L89.151 Pressure ulcer of sacral region, stage 1; N25.0 Renal osteodystrophy; R53.81 Other malaise; Z79.02 Long term (current) use of antithrombotics/antiplatelets; Z79.82 Long term (current) use of aspirin; Z95.5 Presence of coronary angioplasty implant and graft; Z99.2 Dependence on renal dialysis
CPT/HCPCS: 36415; 36600; 71045; 80048; 80053; 80202; 82040; 82306; 82607; 82728; 82803; 82962; 83540; 83550; 83605; 83735; 83970; 84100; 84443; 84478; 84484; 85025; 86022; 86705; 86706; 87040; 87070; 87081; 87086; 87205; 87340; 90935; 93005; 94002; 94003; 94150; 96374; 96375; G0378; J0692; J1644; J2704; J3010; J7060; P9047; C9113; J0282; J7050